=== PATIENT | female | born 1940 | race Caucasian/White ===

== ENCOUNTER → 2017-03-05 | Outpatient (CLI) | payer MEDICARE, BC ==
--- NOTE | 2017-03-05 18:01 | US ---
EXAMINATION TYPE: US thyroid st tissue head/neck DATE OF EXAM: 03/05/2017 COMPARISON: 09/03/2016 CLINICAL HISTORY: Thyroid Nodule E04.1. follow up GLAND SIZE: Right Lobe: 4.6 x 1.9 x 1.8 cm Overall Parenchyma: heterogenous Left Lobe: 4.1 x 1.1 x 1.5 cm Overall Parenchyma: heterogeneous Isthmus Thickness: 0.3 cm NODULES RIGHT: # of nodules measured on right: 1 1. 1.2 X 1.1 x 1.1 cm hypoechoic solid nodule at the upper pole with well-defined margins; . This nodule is wider than tall and shows intranodular vascularity. Prior size: 1.5 x 0.9 x 1.0 cm LEFT: # of nodules measured on left: 0 ISTHMUS: # of nodules measured in the isthmus: 0 Bilateral neck scanned, no evidence of lymphadenopathy. nodule as described IMPRESSION: Stable thyroid heterogeneity. Solid nodule right thyroid lobe is slightly smaller in size in the inte rval.
== END | disposition home or self-care (01) ==
LOC: RADUSWWP 15:29
PROVIDERS: ATTEND Family Medicine
DX: E04.1 Nontoxic single thyroid nodule (principal)
CPT/HCPCS: 76536

== ENCOUNTER → 2017-07-04 | Outpatient (CLI) | payer MEDICARE, BC ==
--- NOTE | 2017-07-04 11:06 | US ---
EXAMINATION TYPE: US abdomen complete DATE OF EXAM: 07/04/2017 COMPARISON: US & CT CLINICAL HISTORY: R10.13 Epigastric pain. EXAM MEASUREMENTS: Liver Length: 12.0 cm Gallbladder Wall: Surgically absent cm CBD: 0.6 cm Spleen: 9.9 cm Right Kidney: 10.3 x 4.3 x 5.4 cm Left Kidney: 10.5 x 4.6 x 5.2 cm Pancreas: not well visualized Liver: difficult to penetrate and generally hyperechoic with poor visualization of the portal triad s and hemidiaphragm. This most commonly relates to at least moderate hepatic steatosis, limiting eval uation for hepatic masses. Gallbladder: Surgically absent CBD: wnl Spleen: wnl Right Kidney: No hydronephrosis or masses seen Left Kidney: No hydronephrosis or masses seen Upper IVC: wnl Abd Aorta: wnl IMPRESSION: 1. Hyperechoic hepatic echotexture most, most commonly corresponding to at least moderate hepatic rina atosis. 2. Surgical absence of the gallbladder.
[2017-07-04 11:26] LABS: Basophils % (A) 0 %; CH 32.3; CHCM 33.1; Eosinophils # (A) 0.1 k/uL (0-0.7); Eosinophils % (A) 1 %; HCT 48.1 % (34.0-46.0); HDW 2.47; HGB 16.2 gm/dL (11.4-16.0); Luc % (Auto) 3; Lymphocytes # (A) 2.7 k/uL (1.0-4.8); Lymphocytes % (A) 38 %; MCHC 33.7 g/dL (31.0-37.0); MCV 98.1 fL (80.0-100.0); Mean Platelet Volume 8.4; Monocytes # (A) 0.4 k/uL (0-1.0); Monocytes % (A) 6 %; Neutrophils # (A) 3.8 k/uL (1.3-7.7); Neutrophils % (A) 53 %; RDW 12.6 % (11.5-15.5); WBC 7.3 k/uL (3.8-10.6); WBC (Perox) 7.36
[2017-07-04 11:50] LABS: ALT 46 U/L (9-52); AST 28 U/L (14-36); Alkaline Phosphatase 70 U/L (38-126); Amylase 49 U/L (30-110); Anion Gap 12 mmol/L; Blood Urea Nitrogen 16 mg/dL (7-17); Calcium 9.1 mg/dL (8.4-10.2); Carbon Dioxide 24 mmol/L (22-30); Chloride 105 mmol/L (98-107); Glucose 110 mg/dL (74-99); Non-African American GFR(MDRD) >60 (>60 ml/min/1.73 sqM); Potassium 4.1 mmol/L (3.5-5.1); Sodium 141 mmol/L (137-145); Total Bilirubin 0.4 mg/dL (0.2-1.3)
== END | disposition home or self-care (01) ==
LOC: RADUSWWP 10:14
PROVIDERS: ATTEND Family Medicine
DX: K76.0 Fatty (change of) liver, not elsewhere classified (principal); R10.13 Epigastric pain; Z90.49 Acquired absence of other specified parts of digestive tract
CPT/HCPCS: 36415; 76700; 80053; 82150; 83690; 85025

== ENCOUNTER → 2018-05-04 | Outpatient (CLI) | payer MEDICARE ==
--- NOTE | 2018-05-04 09:19 | US ---
EXAMINATION TYPE: US thyroid st tissue head/neck DATE OF EXAM: 05/04/2018 COMPARISON: US March 05, 2017 CLINICAL HISTORY: E04.1 Thyroid nodule. Intermittent neck pain x couple months, history of thyroid no dules GLAND SIZE: Right Lobe: 4.8 x 1.9 x 2.0 cm Overall Parenchyma: heterogenous Left Lobe: 4.6 x 1.6 x 1.4 cm Overall Parenchyma: heterogeneous Isthmus Thickness: 0.2 cm NODULES RIGHT: # of nodules measured on right: 1 1. 1.3 X 1.1 x 1.3 cm isoechoic solid nodule at the upper pole with well-defined margins. This nodu le is wider than tall and shows intranodular vascularity. Prior size: 1.2 x 1.1 x 1.1 cm LEFT: # of nodules measured on left: 0 ISTHMUS: # of nodules measured in the isthmus: 0 Bilateral neck scanned, no evidence of lymphadenopathy. Redemonstration of heterogeneous normal-sized thyroid with stable isoechoic solid nodule anteriorly s uperior pole level right thyroid. IMPRESSION: Overall stable findings, no new suspicious nodules identified.
== END | disposition home or self-care (01) ==
LOC: RADUSWWP 08:25
PROVIDERS: ATTEND Family Medicine
DX: E04.1 Nontoxic single thyroid nodule (principal)
CPT/HCPCS: 76536

== ENCOUNTER 2018-09-03 01:46 | Emergency (ER) | payer MEDICARE ==
[2018-09-03 02:55] LABS: Basophils % (A) 1 %; Eosinophils # (A) 0.1 k/uL (0-0.7); Eosinophils % (A) 2 %; HCT 43.1 % (34.0-46.0); HGB 14.4 gm/dL (11.4-16.0); Lymphocytes # (A) 2.9 k/uL (1.0-4.8); Lymphocytes % (A) 40 %; MCH 31.7 pg (25.0-35.0); MCHC 33.5 g/dL (31.0-37.0); MCV 94.7 fL (80.0-100.0); Mean Platelet Volume 8.1; Monocytes # (A) 0.5 k/uL (0-1.0); Monocytes % (A) 6 %; Neutrophils # (A) 3.6 k/uL (1.3-7.7); Neutrophils % (A) 50 %; Platelet Count 228 k/uL (150-450); RBC 4.55 m/uL (3.80-5.40); RDW 12.6 % (11.5-15.5); WBC 7.3 k/uL (3.8-10.6)
[2018-09-03 03:10] LABS: ALT 32 U/L (9-52); AST 25 U/L (14-36); Albumin 4.2 g/dL (3.5-5.0); Alkaline Phosphatase 47 U/L (38-126); Anion Gap 10 mmol/L; Blood Urea Nitrogen 20 mg/dL (7-17); Calcium 9.5 mg/dL (8.4-10.2); Carbon Dioxide 22 mmol/L (22-30); Chloride 108 mmol/L (98-107); Glucose 166 mg/dL (74-99); Potassium 4.3 mmol/L (3.5-5.1); Sodium 140 mmol/L (137-145); Total Bilirubin 0.4 mg/dL (0.2-1.3); Total Protein 6.8 g/dL (6.3-8.2)
--- NOTE | 2018-09-03 03:40 | CT ---
EXAMINATION TYPE: CT soft tissue neck wo con DATE OF EXAM: 09/03/2018 HISTORY: sore throat X 1 week COMPARISON: None CT DLP: 236.6 mGycm. Automated Exposure Control for Dose Reduction was Utilized. TECHNIQUE: Images were obtained without contrast from the top of the frontal sinuses to the aortic ar ch. FINDINGS: There is no evidence of a parotid mass. There is mild mucosal thickening in the ethmoid air cells. Th ere is no evidence of orbital mass. Submandibular salivary glands are symmetric. There is extensive m etal artifact from the dental work. The epiglottis appears normal. Tongue appears normal. There is a 12 mm rounded density on the anterior left side aspect of the hypopharynx. There is slight deformity of the airway. This is between the trachea and the thyroid cartilage. The remainder of the trachea ap pears normal. There is no superior mediastinal adenopathy. I see no cervical adenopathy. The left-sulma ed laryngeal ventricle is not aerated. The cervical spine is intact. The prevertebral soft tissues ar e not enlarged. IMPRESSION: There is a soft tissue density rounded mass that is deforming slightly the hypopharynx on the left anterior wall. This is possibly an enlarged lymph node. I would also consider solid pharyng eal tumor. Follow-up is recommended.
--- NOTE | 2018-09-03 03:46 | XR ---
EXAMINATION TYPE: XR chest 2V DATE OF EXAM: 09/03/2018 COMPARISON: NONE HISTORY: Chest pain TECHNIQUE: Frontal and lateral views of the chest are obtained. FINDINGS: Heart and mediastinum appear normal. Lungs are clear. Diaphragm is normal. Bony thorax austyn ears normal. There are chest leads. IMPRESSION: Normal chest.
--- NOTE | 2018-09-03 03:52 | ED ---
General Adult HPI - General Chief complaint: Upper Respiratory Infection Stated complaint: Chest Pain Time Seen by Provider: 09/03/18 02:15 Source: patient Mode of arrival: ambulatory Limitations: no limitations - History of Present Illness Initial comments: 77-year-old female presents today for multiple complaints. Patient states that for the past week she has experienced congestion, and feeling of phlegm in her throat. She states that the feeling in her throat varies depending on her position. She states when she sleeps on her right side she noticed increased feeling of phlegm. Patient also noted that she recently has been getting over an upper respiratory infection of congestion, cough. Patient states since URI symptoms began resolves she noticed pain to palpation of her anterior chest, this is been going on for about 5 days. Patient denies any recent fever, chills , non-or reproducible chest pain, shortness of breath, dyspnea on exertion, lower extremity edema, jaw pain, upper extremity paresthesias, shoulder pain, epigastric pain, belching, bloating or distention, nausea, vomiting, abdominal pain, back pain, dizziness, difficulty breathing or swallowing, feeling of throat closure. Remainder of ROS negative. Upon arrival patient is well- appearing. Vital signs within acceptable limits. No signs of acute distress. - Related Data Home Medications Medication Instructions Recorded Confirmed ALPRAZolam 0.5 mg PO TID PRN 05/08/15 09/10/16 Cholecalciferol [Vitamin D3] 2,000 unit PO DAILY 05/08/15 09/10/16 Ezetimibe [Zetia] 10 mg PO DAILY 05/08/15 09/10/16 Losartan Potassium 50 mg PO BID 05/08/15 09/10/16 Omeprazole 20 mg PO HS 05/08/15 09/10/16 Ubidecarenone [Co Q-10] 100 mg PO DAILY 05/08/15 09/10/16 metFORMIN HCL 500 mg PO BID 05/08/15 09/10/16 Azithromycin [Zithromax Z-pack] 0 mg PO DIRECTED 09/10/16 09/10/16 Biotin 5 mg PO DAILY 09/10/16 09/10/16 Loperamide [Imodium] 2 mg PO DAILY 09/10/16 09/10/16 Previous Rx's Medication Instructions Recorded predniSONE 50 mg PO DAILY #5 tab 09/10/16 Allergies Allergy/AdvReac Type Severity Reaction Status Date / Time Macrolide Antibiotics AdvReac hair falls Verified 09/03/18 01:52 out per pt Review of Systems ROS Statement: Those systems with pertinent positive or pertinent negative responses have been documented in the HPI. ROS Other: All systems not noted in ROS Statement are negative. Constitutional: Denies: fever, chills ENT: Reports: throat pain (Throat discomfort). Denies: ear pain, dental pain Respiratory: Denies: cough, dyspnea, wheezes, hemoptysis, stridor Cardiovascular: Reports: chest pain (Reproducible chest pain to palpation of the anterior chest wall). Denies: palpitations, dyspnea on exertion Endocrine: Denies: fatigue Gastrointestinal: Denies: abdominal pain, nausea, vomiting, diarrhea, constipation, hematemesis, melena Genitourinary: Denies: urgency, dysuria, frequency, hematuria Musculoskeletal: Denies: back pain Skin: Denies: rash, lesions Neurological: Denies: headache, weakness, numbness, paresthesias, confusion, abnormal gait Past Medical History Past Medical History: Diabetes Mellitus, GERD/Reflux, Hearing Disorder / Deafness, Hyperlipidemia, Hypertension, Osteoarthritis (OA), Thyroid Disorder Additional Past Medical History / Comment(s): DEAF LT EAR. VERTIGO History of Any Multi-Drug Resistant Organisms: None Reported Past Surgical History: Adenoidectomy, Appendectomy, Bladder Surgery, Breast Surgery, Cholecystectomy, Hysterectomy, Orthopedic Surgery, Tonsillectomy, Tubal Ligation Additional Past Surgical History / Comment(s): BLADDER SUSPENSION. COLONOSCOPY. EGD, berast biopsy x2 on left breast - begnin. ORIF LT LEG. SINUS SX, IBS. SKIN LESIONS REMOVED. LT BREAST BX Past Anesthesia/Blood Transfusion Reactions: No Reported Reaction Past Psychological History: Anxiety Smoking Status: Former smoker Past Alcohol Use History: Rare Past Drug Use History: None Reported - Past Family History Father Family Medical History: Cancer Mother Family Medical History: Cancer Daughter(s) Family Medical History: Cancer General Exam - General Exam Comments Initial Comments: General: The patient is awake and alert, in no distress, and does not appear acutely ill. Eye: Pupils are equal, round and reactive to light, extra-ocular movements are intact. No nystagmus. There is normal conjunctiva bilaterally. No signs of icterus. Ears, nose, mouth and throat: There are moist mucous membranes and no oral lesions. Oropharynx is not erythematous, no tonsillar enlargement or exudates. No anterior cervical adenopathy. Uvula midline. No noted stridor. No obvious masses of the thyroid upon palpation. Postnasal drip noted. Neck: The neck is supple, there is no tenderness or JVD. No palpable supraclavicular lymph nodes. Cardiovascular: There is a regular rate and rhythm. No murmur, rub or gallop is appreciated. Respiratory: Lungs are clear to auscultation, respirations are non-labored, breath sounds are equal. No wheezes, stridor, rales, or rhonchi. Gastrointestinal: non-distended, non-tender abdomen without masses or organomegaly noted. There is no rebound or guarding present. Musculoskeletal: Patient is tender to palpation of the anterior chest wall. Normal ROM, no tenderness. Strength 5/5. Sensation intact. Radial pulses equal bilaterally 2+. Neurological: A&O x 3. CN II-XII intact, There are no obvious motor or sensory deficits. Coordination appears grossly intact. Speech is normal. Skin: Skin is warm and dry and no rashes or lesions are noted. Psychiatric: Cooperative, appropriate mood & affect, normal judgment. Limitations: no limitations Course Vital Signs 09/03/18 09/03/18 01:49 03:07 Temperature 98.2 F Pulse Rate 69 77 Respiratory 18 16 Rate Blood Pressure 166/79 155/68 O2 Sat by Pulse 96 96 Oximetry EKG Findings - EKG Comments: EKG Findings:: A 12-lead EKG was performed and shows the following: Rate is 71 bpm, and rhythm is normal sinus. There are normal QRS complexes and normal R- wave progression. ST segments have no elevation or depression, and VA segments appear normal. Medical Decision Making - Medical Decision Making EKG normal sinus rhythm, normal EKG. Chest x-ray negative. Patient had difficulty explaining symptoms, I was concerned of mass given patient's description of throat discomfort with change of position and feeling as though phlegm in throat that she cannot canal. Patient does appear well there does not appear to be overt symptoms of upper respiratory infection at this time. Patient does have tenderness to palpation of the anterior chest wall concerning for costochondritis. Troponin negative. CT of the soft tissue neck was obtained revealing a 12 mm round density on the anterior left side of the hypopharynx. No noted compression of the airway. Patient denies any difficulty breathing or swallowing. T findings appearconsistent with patient stating she is increased throat discomfort when lying on right side. Differential diagnosis included enlarged lymph node and pharyngeal tumor. I discussed these findings with patient. Patient has any recent weight loss. There is no noted adenopathy and CT soft tissues and neck. No palpable lymphadenopathy. Patient is given follow-up with ENT, she is established patient with Dr. Vo. I instructed patient follow up with primary care provider one to 2 days. She is agreeable plan. She states she is ready for discharge. Patient was instructed to take ibuprofen for costochondritis. Return parameters discussed at length with patient, patient verbalized understanding. I discussed case in detail with Dr. Mohr who agreed to impression and plan. Patient discharged in stable condition with follow up as indicated. Patient denied questions upon discharge. - Lab Data Result diagrams: 09/03/18 02:33 09/03/18 02:33 Lab Results 09/03/18 09/03/18 09/03/18 Range/Units 02:33 02:33 02:33 WBC 7.3 (3.8-10.6) k/uL RBC 4.55 (3.80-5.40) m/uL Hgb 14.4 (11.4-16.0) gm/dL Hct 43.1 (34.0-46.0) % MCV 94.7 (80.0-100.0) fL MCH 31.7 (25.0-35.0) pg MCHC 33.5 (31.0-37.0) g/dL RDW 12.6 (11.5-15.5) % Plt Count 228 (150-450) k/uL Neutrophils % 50 % Lymphocytes % 40 % Monocytes % 6 % Eosinophils % 2 % Basophils % 1 % Neutrophils # 3.6 (1.3-7.7) k/uL Lymphocytes # 2.9 (1.0-4.8) k/uL Monocytes # 0.5 (0-1.0) k/uL Eosinophils # 0.1 (0-0.7) k/uL Basophils # 0.0 (0-0.2) k/uL Sodium 140 (137-145) mmol/L Potassium 4.3 (3.5-5.1) mmol/L Chloride 108 H (98-107) mmol/L Carbon Dioxide 22 (22-30) mmol/L Anion Gap 10 mmol/L BUN 20 H (7-17) mg/dL Creatinine 0.68 (0.52-1.04) mg/dL Est GFR (CKD-EPI)AfAm >90 (>60 ml/min/1.73 sqM) Est GFR (CKD-EPI)NonAf 85 (>60 ml/min/1.73 sqM) Glucose 166 H (74-99) mg/dL Calcium 9.5 (8.4-10.2) mg/dL Total Bilirubin 0.4 (0.2-1.3) mg/dL AST 25 (14-36) U/L ALT 32 (9-52) U/L Alkaline Phosphatase 47 (38-126) U/L Troponin I <0.012 (0.000-0.034) ng/mL Total Protein 6.8 (6.3-8.2) g/dL Albumin 4.2 (3.5-5.0) g/dL Influenza Type A RNA (Not Detectd) Influenza Type B (PCR) (Not Detectd) Group A Strep Rapid (Negative) 09/03/18 09/03/18 Range/Units 03:05 03:05 WBC (3.8-10.6) k/uL RBC (3.80-5.40) m/uL Hgb (11.4-16.0) gm/dL Hct (34.0-46.0) % MCV (80.0-100.0) fL MCH (25.0-35.0) pg MCHC (31.0-37.0) g/dL RDW (11.5-15.5) % Plt Count (150-450) k/uL Neutrophils % % Lymphocytes % % Monocytes % % Eosinophils % % Basophils % % Neutrophils # (1.3-7.7) k/uL Lymphocytes # (1.0-4.8) k/uL Monocytes # (0-1.0) k/uL Eosinophils # (0-0.7) k/uL Basophils # (0-0.2) k/uL Sodium (137-145) mmol/L Potassium (3.5-5.1) mmol/L Chloride (98-107) mmol/L Carbon Dioxide (22-30) mmol/L Anion Gap mmol/L BUN (7-17) mg/dL Creatinine (0.52-1.04) mg/dL Est GFR (CKD-EPI)AfAm (>60 ml/min/1.73 sqM) Est GFR (CKD-EPI)NonAf (>60 ml/min/1.73 sqM) Glucose (74-99) mg/dL Calcium (8.4-10.2) mg/dL Total Bilirubin (0.2-1.3) mg/dL AST (14-36) U/L ALT (9-52) U/L Alkaline Phosphatase (38-126) U/L Troponin I (0.000-0.034) ng/mL Total Protein (6.3-8.2) g/dL Albumin (3.5-5.0) g/dL Influenza Type A RNA Not Detected (Not Detectd) Influenza Type B (PCR) Not Detected (Not Detectd) Group A Strep Rapid Negative (Negative) Disposition Clinical Impression: Costochondritis, Mass of pharynx, Throat discomfort Disposition: HOME SELF-CARE Condition: Good Instructions: Costochondritis (ED) Additional Instructions: Please use over the counter medication as discussed. Please follow-up with family doctor in the next 2 days for costochondritis. Please follow-up with Dr. Grimes (ENT) for pharyngeal mass noted on CT. Please return to emergency room if the symptoms increase or worsen or for any other concerns. Is patient prescribed a controlled substance at d/c from ED?: No Referrals: Ivan Frederick DO [Primary Care Provider] - 1-2 days rBoderick Grimes MD [STAFF PHYSICIAN] - 1-2 days Time of Disposition: 03:52
[2018-09-03 04:08] VITALS: BP 155/84; PULSE 70; RESP 18; TEMP 98.1
== END 2018-09-03 04:12 | disposition home or self-care (01) ==
LOC: EC 01:46
DX: M94.0 Chondrocostal junction syndrome [Tietze] (principal); J39.2 Other diseases of pharynx; E11.9 Type 2 diabetes mellitus without complications; K21.9 Gastro-esophageal reflux disease without esophagitis; E78.5 Hyperlipidemia, unspecified; I10 Essential (primary) hypertension; Z90.89 Acquired absence of other organs; Z87.891 Personal history of nicotine dependence; Z79.84 Long term (current) use of oral hypoglycemic drugs; Z79.899 Other long term (current) drug therapy; Z88.1 Allergy status to other antibiotic agents
CPT/HCPCS: 36415; 70490; 71046; 80053; 84484; 85025; 87081; 87430; 87502; 93005; 99285

== ENCOUNTER → 2018-11-11 | Outpatient (CLI) | payer MEDICARE ==
--- NOTE | 2018-11-11 09:51 | US ---
EXAMINATION TYPE: US thyroid st tissue head/neck DATE OF EXAM: 11/11/2018 COMPARISON: NONE CLINICAL HISTORY: E04.1 SINGLE THYROID NODULE. GLAND SIZE: Right Lobe: 4.9 x 2.3 x 1.9 cm Overall Parenchyma: homogenous Left Lobe: 4.3 x 2.1 x 1.5 cm Overall Parenchyma: homogeneous Isthmus Thickness: 0.4 cm NODULES RIGHT: # of nodules measured on right: 1 1. 1.3 X 1.0 x 1.1 cm hypoechoic solid nodule at the upper pole with well-defined margins; . This nodule is wider than tall and shows no intranodular vascularity. Prior size: 1.3 x 1.1 x 1.3 cm LEFT: # of nodules measured on left: 1 1. 0.6 X 0.3 x 0.6 cm hypoechoic solid nodule at the upper pole with well-defined margins; . This nodule is taller than wide and shows no intranodular vascularity. Prior size: not previously imaged ISTHMUS: # of nodules measured in the isthmus: 0 Bilateral neck scanned, no evidence of lymphadenopathy. IMPRESSION: Nonspecific nodularity is essentially stable. New subcentimeter nodule left thyroid lobe.
== END | disposition home or self-care (01) ==
LOC: RADUSWWP 09:05
PROVIDERS: ATTEND Family Medicine
DX: E04.1 Nontoxic single thyroid nodule (principal)
CPT/HCPCS: 76536

== ENCOUNTER 2019-03-28 03:30 | Emergency (ER) | payer MEDICARE ==
[2019-03-28 03:40] VITALS: BP 199/89; PULSE 96; RESP 19; TEMP 98.3
[2019-03-28] MEDS ORDERED: KETOROLAC 30 MG/ML 1 ML VIAL IM STA (04:10)
--- NOTE | 2019-03-28 04:13 | ED ---
General Adult HPI - General Chief complaint: Extremity Injury, Lower Stated complaint: Flank Pain Time Seen by Provider: 03/28/19 03:46 Source: patient Mode of arrival: ambulatory Limitations: no limitations - History of Present Illness Initial comments: Dictation was produced using [employer] dictation software. please excuse any grammatical, word or spelling errors. Chief Complaint: 70-year-old female past nuchal history of right-sided sciatica presents with right-sided hip pain. History of Present Illness: Now she states that she began having symptoms earlier today. Patient has a history of sciatica. She reports that the pain is originating from her right gluteal area. States pain radiates to her back to her right lower extremity. Patient reports history of symptoms like this in the past. Patient states that she is currently remodeling her kitchen and has being doing more exertional activity than usual. Patient reports that pain is usually alleviated with analgesic spray. She states that today it didn't really improve her symptoms like it normally does. She reports having had an MRI several years ago. She is currently having this pain management by her primary care physician. Eyes any fever, chills or night sweats. Denies any saddle anesthesia or incontinence to bowel or bladder. Patient states she is having difficulty sleeping and controlling her symptoms. Her said her symptoms are worse with movement especially with bending at the hip. The ROS documented in this emergency department record has been reviewed and confirmed by me. Those systems with pertinent positive or negative responses have been documented in the HPI. All other systems are other negative and/or noncontributory. PHYSICAL EXAM: General Impression: Alert and oriented x3, not in acute distress HEENT: Normocephalic atraumatic, extra-ocular movements intact, pupils equal and reactive to light bilaterally, mucous membranes moist. Cardiovascular: Heart regular rate and rhythm, S1&S2 audible, no murmurs, rubs or gallops Chest: Lungs clear to auscultation bilaterally, no rhonchi, no wheeze, no rales Abdomen: Bowel sounds present, abdomen soft, non-tender, non-distended, no organomegaly Musculoskeletal: Pulses present and equal in all extremities, no peripheral edema, tenderness palpation over the right piriformis Motor: no focal deficits noted Neurological: CN II-XII grossly intact, no focal motor or sensory deficits noted Skin: Intact with no visualized rashes Psych: Normal affect and mood ED course: 78 yo female with acute on chronic exacerbation of sciatica. Signs upon arrival are within acceptable limits. She given IM analgesia. Patient did not want to wait to be reevaluated to see if her pain improved. She requested to be discharged at this time. She is well-appearing at bedside. She is ambulatory at bedside without any complications. Patient is well-appearing at bedside.. Patient be discharged. She is told to follow-up with primary care physician. - Related Data Home Medications Medication Instructions Recorded Confirmed ALPRAZolam 0.5 mg PO TID PRN 05/08/15 03/28/19 Cholecalciferol [Vitamin D3] 2,000 unit PO DAILY 05/08/15 03/28/19 Ezetimibe [Zetia] 10 mg PO DAILY 05/08/15 03/28/19 Losartan Potassium 50 mg PO BID 05/08/15 03/28/19 Omeprazole 20 mg PO HS 05/08/15 03/28/19 Ubidecarenone [Co Q-10] 100 mg PO DAILY 05/08/15 03/28/19 metFORMIN HCL 500 mg PO BID 05/08/15 03/28/19 Biotin 5 mg PO DAILY 09/10/16 03/28/19 Loperamide [Imodium] 2 mg PO DAILY 09/10/16 03/28/19 Previous Rx's Medication Instructions Recorded predniSONE 50 mg PO DAILY #5 tab 09/10/16 Allergies Allergy/AdvReac Type Severity Reaction Status Date / Time Macrolide Antibiotics AdvReac hair falls Verified 09/03/18 01:52 out per pt Review of Systems ROS Statement: Those systems with pertinent positive or pertinent negative responses have been documented in the HPI. ROS Other: All systems not noted in ROS Statement are negative. Past Medical History Past Medical History: Diabetes Mellitus, GERD/Reflux, Hearing Disorder / Deafness, Hyperlipidemia, Hypertension, Osteoarthritis (OA), Thyroid Disorder Additional Past Medical History / Comment(s): DEAF LT EAR. VERTIGO History of Any Multi-Drug Resistant Organisms: None Reported Past Surgical History: Adenoidectomy, Appendectomy, Bladder Surgery, Breast Surgery, Cholecystectomy, Hysterectomy, Orthopedic Surgery, Tonsillectomy, Tubal Ligation Additional Past Surgical History / Comment(s): BLADDER SUSPENSION. COLONOSCOPY. EGD, berast biopsy x2 on left breast - begnin. ORIF LT LEG. SINUS SX, IBS. SKIN LESIONS REMOVED. LT BREAST BX. Polyp removed from throat Past Anesthesia/Blood Transfusion Reactions: No Reported Reaction Past Psychological History: Anxiety Smoking Status: Former smoker Past Alcohol Use History: Rare Past Drug Use History: None Reported - Past Family History Father Family Medical History: Cancer Mother Family Medical History: Cancer Daughter(s) Family Medical History: Cancer General Exam Limitations: no limitations Course Vital Signs 03/28/19 03:34 Temperature 98.3 F Pulse Rate 96 Respiratory 19 Rate Blood Pressure 199/89 O2 Sat by Pulse 95 Oximetry Disposition Clinical Impression: Sciatica Disposition: HOME SELF-CARE Condition: Good Instructions (If sedation given, give patient instructions): Sciatica (ED) Is patient prescribed a controlled substance at d/c from ED?: No Referrals: Ivan Frederick DO [Primary Care Provider] - 1-2 days Time of Disposition: 04:35
== END 2019-03-28 04:50 | disposition home or self-care (01) ==
LOC: EC 03:30
DX: M54.31 Sciatica, right side (principal); I10 Essential (primary) hypertension; E11.9 Type 2 diabetes mellitus without complications; K21.9 Gastro-esophageal reflux disease without esophagitis; E78.5 Hyperlipidemia, unspecified; H91.92 Unspecified hearing loss, left ear; F41.9 Anxiety disorder, unspecified; R10.9 Unspecified abdominal pain; Z79.84 Long term (current) use of oral hypoglycemic drugs; Z79.899 Other long term (current) drug therapy; Z88.1 Allergy status to other antibiotic agents; Z87.891 Personal history of nicotine dependence; Z90.49 Acquired absence of other specified parts of digestive tract; Z98.890 Other specified postprocedural states; Z96.698 Presence of other orthopedic joint implants
CPT/HCPCS: 99283; 96372; J1885

== ENCOUNTER → 2019-05-11 | Outpatient (CLI) | payer MEDICARE ==
--- NOTE | 2019-05-11 14:49 | US ---
EXAMINATION TYPE: US thyroid st tissue head/neck DATE OF EXAM: 05/11/2019 COMPARISON: US dating back to 09/03/2016 CLINICAL HISTORY: E04.1 nontoxic single thyroid nodule. GLAND SIZE: Right Lobe: 4.0 x 1.9 x 1.9 cm Overall Parenchyma: homogenous Left Lobe: 4.5 x 1.9 x 1.5 cm Overall Parenchyma: homogeneous Isthmus Thickness: 0.2 cm NODULES RIGHT: # of nodules measured on right: 1 1. 1.2 X 0.9 x 1.1 cm isoechoic solid nodule at the upper pole with well-defined margins. This nod ule is wider than tall and shows . Prior size: 1.3 x 0.3 x 0.6 cm on the most recent exam and this measured 1.5 x 0.9 x 1.0 cm on th e exam of 09/03/2016. LEFT: # of nodules measured on left: 1 1. 0.7 X 0.3 x 0.6 cm hypoechoic solid nodule at the upper pole with well-defined margins . This n odule is wider than tall and shows intranodular vascularity. Prior size: 0.6 x 0.3 x 0.6 cm ISTHMUS: # of nodules measured in the isthmus: 0 Bilateral neck scanned, no evidence of lymphadenopathy. IMPRESSION: Similar size of the bilateral thyroid nodules. Continued surveillance is recommended.
== END | disposition home or self-care (01) ==
LOC: RADUSWWP 14:04
PROVIDERS: ATTEND Family Medicine
DX: E04.2 Nontoxic multinodular goiter (principal)
CPT/HCPCS: 76536

== ENCOUNTER → 2020-03-28 | Outpatient (CLI) | payer MEDICARE ==
--- NOTE | 2020-03-29 07:15 | US ---
EXAMINATION TYPE: US thyroid st tissue head/neck DATE OF EXAM: 03/28/2020 COMPARISON: NONE CLINICAL HISTORY: E04.1 Thyroid nodule. GLAND SIZE: Right Lobe: 5.6 x 2.3 x 1.6 cm Overall Parenchyma: heterogenous Left Lobe: 4.8 x 1.9 x 1.2 cm Overall Parenchyma: heterogeneous Isthmus Thickness: 0.3 cm NODULES RIGHT: # of nodules measured on right: 1 1. 1.2 X 0.9 x 1.4 cm isoechoic solid nodule at the upper pole with well-defined margins. This nod ule is wider than tall and shows intranodular vascularity. Prior size: 1.2 x 0.9 x 1.1 cm LEFT: # of nodules measured on left: 1 1. 0.6 X 0.4 x 0.6 cm isoechoic solid nodule at the mid pole with well-defined margins. This nodul e is wider than tall and shows no intranodular vascularity. Prior size: 0.7 x 0.3 x 0.6 cm ISTHMUS: # of nodules measured in the isthmus: 0 Bilateral neck scanned, no evidence of lymphadenopathy. IMPRESSION: Stable nonspecific thyroid nodularity.
== END | disposition home or self-care (01) ==
LOC: RADUSWWP 16:04
PROVIDERS: ATTEND Family Medicine
DX: E04.1 Nontoxic single thyroid nodule (principal)
CPT/HCPCS: 76536

== ENCOUNTER 2021-01-19 10:42 | Inpatient (IN) | payer MEDICARE ==
[2021-01-19] MEDS ORDERED: ACETAMINOPHEN TAB 325 MG TAB PO PRN (10:49)
[2021-01-19] MEDS ORDERED: ALBUTEROL HFA INHALER INHALATION PRN (10:49)
[2021-01-19] MEDS ORDERED: ALBUTEROL HFA INHALER INHALATION STA (10:49)
--- NOTE | 2021-01-19 10:51 | ED ---
General Adult HPI - General Stated complaint: Altered Mental Status Time Seen by Provider: 01/19/21 10:44 Source: patient, EMS, RN notes reviewed Mode of arrival: EMS Limitations: no limitations - History of Present Illness Initial comments: Patient is a pleasant 80-year-old female presenting to the emergency department with difficulty in breathing. Patient was diagnosed positive with coronavirus on January 10. Patient did receive monoclonal antibodies a couple of days ago. P atient was less responsive today. Patient was not keeping her oxygen on. Patient has been using oxygen as coronavirus infection recently. Patient was confused and cyanotic per EMS. Sat was in the 70s or 80s. Patient dramatically improved with 100% oxygen. - Related Data Home Medications Medication Instructions Recorded Confirmed ALPRAZolam 0.5 mg PO TID PRN 05/08/15 03/28/19 Cholecalciferol [Vitamin D3] 2,000 unit PO DAILY 05/08/15 03/28/19 Ezetimibe [Zetia] 10 mg PO DAILY 05/08/15 03/28/19 Losartan Potassium 50 mg PO BID 05/08/15 03/28/19 Omeprazole 20 mg PO HS 05/08/15 03/28/19 Ubidecarenone [Co Q-10] 100 mg PO DAILY 05/08/15 03/28/19 metFORMIN HCL 500 mg PO BID 05/08/15 03/28/19 Biotin 5 mg PO DAILY 09/10/16 03/28/19 Loperamide [Imodium] 2 mg PO DAILY 09/10/16 03/28/19 Previous Rx's Medication Instructions Recorded predniSONE 50 mg PO DAILY #5 tab 09/10/16 Allergies Allergy/AdvReac Type Severity Reaction Status Date / Time Macrolide Antibiotics AdvReac hair falls Verified 01/19/21 10:57 out per pt Review of Systems ROS Statement: Those systems with pertinent positive or pertinent negative responses have been documented in the HPI. ROS Other: All systems not noted in ROS Statement are negative. Constitutional: Reports: chills Eyes: Denies: eye pain ENT: Denies: ear pain Respiratory: Reports: cough, dyspnea Cardiovascular: Denies: chest pain Endocrine: Reports: fatigue Gastrointestinal: Denies: abdominal pain Genitourinary: Denies: dysuria Musculoskeletal: Denies: back pain Skin: Denies: rash Neurological: Reports: as per HPI, confusion. Denies: headache Past Medical History Past Medical History: Diabetes Mellitus, GERD/Reflux, Hearing Disorder / Deaf ness, Hyperlipidemia, Hypertension, Osteoarthritis (OA), Thyroid Disorder Additional Past Medical History / Comment(s): DEAF LT EAR. VERTIGO History of Any Multi-Drug Resistant Organisms: None Reported Past Surgical History: Adenoidectomy, Appendectomy, Bladder Surgery, Breast Surgery, Cholecystectomy, Hysterectomy, Orthopedic Surgery, Tonsillectomy, Tubal Ligation Additional Past Surgical History / Comment(s): BLADDER SUSPENSION. COLONOSCOPY. EGD, berast biopsy x2 on left breast - begnin. ORIF LT LEG. SINUS SX, IBS. SKIN LESIONS REMOVED. LT BREAST BX. Polyp removed from throat Past Anesthesia/Blood Transfusion Reactions: No Reported Reaction Past Psychological History: Anxiety Past Alcohol Use History: Rare Past Drug Use History: None Reported - Past Family History Father Family Medical History: Cancer Mother Family Medical History: Cancer Daughter(s) Family Medical History: Cancer General Exam Limitations: altered mental status General appearance: alert Head exam: Present: normocephalic Eye exam: Present: normal appearance, PERRL Neck exam: Present: normal inspection Respiratory exam: Present: respiratory distress (Mild respiratory distress), rhonchi Cardiovascular Exam: Present: tachycardia GI/Abdominal exam: Present: soft. Absent: tenderness Extremities exam: Present: normal inspection Neurological exam: Present: alert Expanded Patient oriented to: Present: person, place Speech: Present: fluid speech Psychiatric exam: Present: normal affect, normal mood Skin exam: Present: normal color Course Vital Signs 01/19/21 01/19/21 01/19/21 10:45 11:19 11:35 Temperature 98.9 F Pulse Rate 99 102 H 100 Respiratory 24 29 H 38 H Rate Blood Pressure 156/105 182/91 194/103 O2 Sat by Pulse 86 L 94 L 96 Oximetry EKG Findings - EKG Comments: EKG Findings:: Sinus rhythm with a rate of 100. [place] 144. QRS 80. QT 360. QTC 464. Normal axis. Significant artifact is present. Normal QRS. No acute ST change. Procedures - ABG Interpretation Ph: 7.538 PCO2: 30.2 PO2: 136 Bicarbonate: 25 Interpretation: respiratory alkalosis Additional Comments: On 100% nonrebreather Medical Decision Making - Medical Decision Making Patient reevaluated several times. Patient is somewhat improved with BiPAP. Case was discussed in detail with Dr. Aldrich, who will admit covering for Dr. Frederick. Pulmonary will be placed on consult. - Lab Data Result diagrams: 01/19/21 11:16 01/19/21 11:16 Lab Results 01/19/21 01/19/21 Range/Units 11:16 11:16 WBC 8.5 (3.8-10.6) k/uL RBC 5.23 (3.80-5.40) m/uL Hgb 16.6 H (11.4-16.0) gm/dL Hct 48.9 H (34.0-46.0) % MCV 93.6 (80.0-100.0) fL MCH 31.7 (25.0-35.0) pg MCHC 33.8 (31.0-37.0) g/dL RDW 12.8 (11.5-15.5) % Plt Count 229 (150-450) k/uL MPV 10.7 Neutrophils % 76 % Lymphocytes % 10 % Monocytes % 10 % Eosinophils % 0 % Basophils % 1 % Neutrophils # 6.5 (1.3-7.7) k/uL Lymphocytes # 0.9 L (1.0-4.8) k/uL Monocytes # 0.8 (0-1.0) k/uL Eosinophils # 0.0 (0-0.7) k/uL Basophils # 0.1 (0-0.2) k/uL Sodium 137 (137-145) mmol/L Potassium 4.2 (3.5-5.1) mmol/L Chloride 105 (98-107) mmol/L Carbon Dioxide 24 (22-30) mmol/L Anion Gap 8 mmol/L BUN 33 H (7-17) mg/dL Creatinine 0.61 (0.52-1.04) mg/dL Est GFR (CKD-EPI)AfAm >90 (>60 ml/min/1.73 sqM) Est GFR (CKD-EPI)NonAf 86 (>60 ml/min/1.73 sqM) Glucose 316 H (74-99) mg/dL Calcium 9.3 (8.4-10.2) mg/dL Magnesium 2.0 (1.6-2.3) mg/dL Total Bilirubin 1.0 (0.2-1.3) mg/dL AST 92 H (14-36) U/L ALT 140 H (4-34) U/L Alkaline Phosphatase 103 (38-126) U/L Lactate Dehydrogenase 1897 H (313-618) U/L Total Protein 6.2 L (6.3-8.2) g/dL Albumin 3.6 (3.5-5.0) g/dL - Radiology Data Radiology results: image reviewed (Chest x-ray shows interstitial infiltrates) Critical Care Time Critical Care Time: Yes Total Critical Care Time: 31 Disposition Clinical Impression: COVID-19, Acute respiratory failure Disposition: ADMITTED IP TO THIS [facility] Condition: Serious Is patient prescribed a controlled substance at d/c from ED?: No Referrals: Ivan Frederick DO [Primary Care Provider] - 1-2 days Decision Time: 12:41
[2021-01-19] MEDS ORDERED: LORazepam 2 MG/ML INJ IV STA (11:50)
--- NOTE | 2021-01-19 11:56 | XR ---
EXAMINATION TYPE: XR chest 1V portable DATE OF EXAM: 01/19/2021 Comparison: 09/03/2018 Clinical History: 80-year-old female Suspected COVID-19 pneumonia Findings: Heart normal size. Aorta within normal limits. Hyperinflation. Interstitial opacities in the mid and lower lungs. No pleural effusion. Impression: Interstitial COVID infiltrates in the mid and lower lungs.
[2021-01-19 12:09] LABS: Basophils # (A) 0.1 k/uL (0-0.2); Basophils % (A) 1 %; Eosinophils % (A) 0 %; HCT 48.9 % (34.0-46.0); HGB 16.6 gm/dL (11.4-16.0); Lymphocytes # (A) 0.9 k/uL (1.0-4.8); Lymphocytes % (A) 10 %; MCH 31.7 pg (25.0-35.0); MCHC 33.8 g/dL (31.0-37.0); MCV 93.6 fL (80.0-100.0); Mean Platelet Volume 10.7; Monocytes # (A) 0.8 k/uL (0-1.0); Monocytes % (A) 10 %; Neutrophils # (A) 6.5 k/uL (1.3-7.7); Neutrophils % (A) 76 %; Platelet Count 229 k/uL (150-450); RBC 5.23 m/uL (3.80-5.40); RDW 12.8 % (11.5-15.5); WBC 8.5 k/uL (3.8-10.6)
[2021-01-19 12:27] LABS: ALT 140 U/L (4-34); AST 92 U/L (14-36); African American GFR (CKD) >90 (>60 ml/min/1.73 sqM); Albumin 3.6 g/dL (3.5-5.0); Alkaline Phosphatase 103 U/L (38-126); Anion Gap 8 mmol/L; Blood Urea Nitrogen 33 mg/dL (7-17); Calcium 9.3 mg/dL (8.4-10.2); Carbon Dioxide 24 mmol/L (22-30); Chloride 105 mmol/L (98-107); Glucose 316 mg/dL (74-99); LDH 1897 U/L (313-618); Non-African American GFR(CKD) 86 (>60 ml/min/1.73 sqM); Potassium 4.2 mmol/L (3.5-5.1); Sodium 137 mmol/L (137-145); Total Protein 6.2 g/dL (6.3-8.2)
[2021-01-19] MEDS ORDERED: NALOXONE 0.4 MG/ML 1 ML VIAL IV PRN (12:41)
[2021-01-19 12:44] LABS: Partial Thromboplastin Time 19.6 sec (22.0-30.0)
[2021-01-19] MEDS ORDERED: CHOLECALCIFEROL 25 MCG (1000 IU) TABLET PO SCH (12:45)
[2021-01-19] MEDS ORDERED: OLANZapine 10 MG VIAL IM STA (13:29)
[2021-01-19] MEDS: LORazepam 2 MG/ML INJ IV PRN ×2 (13:39→20:12)
[2021-01-19] MEDS: DEXAMETHASONE SOD PHOSPHATE 10 MG/ML 1 ML VIAL IV SCH (13:44)
[2021-01-19 13:56] LABS: C Reactive Protein 0.7 mg/dL (<1.0)
[2021-01-19] MEDS: ZINC SULFATE 220 MG CAP PO SCH (14:46)
[2021-01-19] MEDS: ENOXAPARIN 40 MG/0.4 ML SYRINGE SQ SCH (14:46)
[2021-01-19] MEDS: SODIUM CHLORIDE 0.9% 1,000 ML IV SCH (14:48)
[2021-01-19] MEDS: ALBUTEROL HFA INHALER INHALATION SCH ×2 (15:18→19:20)
[2021-01-19 17:59] LABS: Glucose,Whole Blood 356 mg/dL (75-99)
[2021-01-19 20:19] LABS: Glucose,Whole Blood 355 mg/dL (75-99)
[2021-01-19] MEDS ORDERED: INSULIN ASPART (NovoLOG) 100 UNIT/ML VIAL SQ SCH (21:00)
[2021-01-19 21:05] LABS: Ferritin 1759.8 ng/mL (10.0-291.0)
[2021-01-19] MEDS: ASCORBIC ACID 500 MG TAB PO SCH (21:08)
[2021-01-19] MEDS ORDERED: NON FORMULARY DRUG (Omeprazole [Omeprazole] 20 MG Capsule.Dr) PO SCH (21:15)
[2021-01-20 00:06] LABS: Glucose,Whole Blood 311 mg/dL (75-99)
[2021-01-20] MEDS: LORazepam 2 MG/ML INJ IV PRN ×2 (01:45→08:26)
[2021-01-20] MEDS: INSULIN ASPART (NovoLOG) 100 UNIT/ML VIAL SQ SCH ×2 (02:23→06:26)
[2021-01-20] MEDS: SODIUM CHLORIDE 0.9% 1,000 ML IV SCH (02:24)
[2021-01-20] MEDS: ALBUTEROL HFA INHALER INHALATION SCH ×2 (03:23→09:44)
[2021-01-20 05:25] VITALS: TEMP 98.4
[2021-01-20 06:04] LABS: Glucose,Whole Blood 248 mg/dL (75-99)
[2021-01-20] MEDS ORDERED: LOSARTAN 50 MG TAB PO SCH (09:00)
[2021-01-20] MEDS ORDERED: CHOLECALCIFEROL 25 MCG (1000 IU) TABLET PO SCH (09:00)
[2021-01-20] MEDS ORDERED: PANTOPRAZOLE 40 MG/10 ML VIAL IV SCH (09:00)
[2021-01-20] MEDS ORDERED: EZETIMIBE 10 MG TAB PO SCH (09:00)
[2021-01-20 09:27] VITALS: BP 185/92
[2021-01-20] MEDS: ASCORBIC ACID 500 MG TAB PO SCH (10:13)
[2021-01-20] MEDS: ZINC SULFATE 220 MG CAP PO SCH (10:14)
[2021-01-20] MEDS ORDERED: ACETAMINOPHEN SUPPOSITORY 650 MG SUPP RECTAL PRN (10:43)
[2021-01-20] MEDS ORDERED: LORazepam 2 MG/ML INJ IV PRN (10:43)
[2021-01-20] MEDS ORDERED: MORPHINE SULFATE 2 MG/ML SYRINGE IV PRN (10:43)
--- NOTE | 2021-01-20 10:52 | P.CNPUL ---
History of Present Illness Consult date: 01/20/21 Reason for consult: hypoxemia, pneumonia History of present illness: 80-year-old female patient presented with shortness of breath. The patient was diagnosed having COVID-19 infection on 01/10/2021 and the patient has received monoclonal antibodies. The patient's condition gradually got worse and she came into the emergency department with altered mentation diminished level of consciousness. She was on to be quite hypoxic. EMS brought her to the hospital found the patient was quite confused and cyanotic her pulse ox was in the 70s. She was placed on 100% nonrebreather facemask and after arrival to the emergency the patient was placed on a BiPAP and current settings are 10/5 cm of water with an FiO2 of 90%. The initial blood gases while on 100% nonrebreather facemask showed a pH of 7.53 with a pCO2 of 50 and pO2 of 136. White cell count is at 8.5 with hemoglobin of 16.6 and the patient has lymphopenia. Coagulation profile is within normal limits. The LDH level was 1897 and the CRP is at 0.7. The pro calcitonin level level is at 0.12. The chest x-ray showed diffuse bilateral pulmonary infiltrates consistent with COVID-19 related pneumonia. We came to further final the patient's a week ago for COVID-19 related complications. For now, the patient moans, she is is not opening her eyes patient does not follow any verbal commands. She does not communicate. She is on a BiPAP and she is also having labored breathing. Review of Systems ROS unobtainable: due to mental status Past Medical History Past Medical History: Diabetes Mellitus, GERD/Reflux, Hearing Disorder / Deafness, Hyperlipidemia, Hypertension, Osteoarthritis (OA), Thyroid Disorder Additional Past Medical History / Comment(s): Pt tested covid + 01/10/21 at [facility]. Other hx: NIDDM type II, neuropathy bilateral feet, low back pain and L sided sciatica/hip pain, hypothyroid, IBS, benign colon polyps, benign throat polyp, vertigo History of Any Multi-Drug Resistant Organisms: None Reported Past Surgical History: Adenoidectomy, Appendectomy, Bladder Surgery, Breast Surgery, Cholecystectomy, Hysterectomy, Orthopedic Surgery, Tonsillectomy, Tubal Ligation Additional Past Surgical History / Comment(s): EGDs/throat polypectomy, colonoscopies/benign polypectomies, ORIF L leg, bladder suspension, L breast bx x2, sinus surgery, skin lesion removals. Past Anesthesia/Blood Transfusion Reactions: No Reported Reaction Smoking Status: Former smoker - Past Family History Father Family Medical History: Cancer Mother Family Medical History: Cancer Daughter(s) Family Medical History: Cancer Medications and Allergies Home Medications Medication Instructions Recorded Confirmed Type ALPRAZolam 0.25 - 0.5 mg PO TID PRN 05/08/15 01/19/21 History Cholecalciferol [Vitamin D3] 2,000 unit PO DAILY 05/08/15 01/19/21 History Ezetimibe [Zetia] 10 mg PO DAILY 05/08/15 01/19/21 History Omeprazole 20 mg PO HS 05/08/15 01/19/21 History Ubidecarenone [Co Q-10] 100 mg PO DAILY 05/08/15 01/19/21 History Albuterol Inhaler [Ventolin Hfa 2 puff INHALATION RT-QID PRN 01/19/21 01/19/21 History Inhaler] Ascorbic Acid [Vitamin C] 1,000 mg PO DAILY 01/19/21 01/19/21 History Dexamethasone [Decadron] 4 mg PO BID 01/19/21 01/19/21 History Enoxaparin [Lovenox] 40 mg SQ DAILY 01/19/21 01/19/21 History Ibuprofen [Motrin] 600 mg PO Q12H PRN 01/19/21 01/19/21 History Losartan Potassium 50 mg PO DAILY 01/19/21 01/19/21 History Losartan Potassium 50 mg PO DAILY PRN 01/19/21 01/19/21 History Zinc Sulfate [Orazinc] 220 mg PO DAILY 01/19/21 01/19/21 History sitaGLIPtin [Januvia] 50 mg PO DAILY 01/19/21 01/19/21 History Allergies Allergy/AdvReac Type Severity Reaction Status Date / Time Macrolide Antibiotics AdvReac hair falls Verified 01/19/21 12:58 out per pt Physical Exam Vitals: Vital Signs Temp Pulse Pulse Resp BP BP Pulse Ox 01/20/21 08:00 103 H 60 H 185/92 90 L 01/20/21 04:00 98.4 F 99 30 H 167/89 94 L 01/20/21 02:00 108 H 32 H 01/20/21 00:00 97.9 F 108 H 32 H 189/93 95 01/19/21 23:21 99 01/19/21 20:00 99.0 F 98 33 H 141/96 96 01/19/21 18:15 98.5 F 112 H 32 H 184/108 93 L 01/19/21 17:23 98.7 F 115 H 34 H 199/103 96 01/19/21 16:47 120 H 40 H 216/119 96 01/19/21 15:26 98.8 F 109 H 22 174/87 95 01/19/21 14:45 107 H 26 H 160/85 93 L 01/19/21 13:19 122 H 40 H 208/115 99 01/19/21 11:35 100 38 H 194/103 96 01/19/21 11:19 102 H 29 H 182/91 94 L Intake and Output 01/19/21 01/20/21 01/20/21 22:59 06:59 14:59 Intake Total 0 675 0 Output Total 0 Balance 0 675 0 Intake: Intake, IV Titration 675 Amount Sodium Chloride 0.9% 1, 675 000 ml @ 75 mls/hr IV . [id number] [facility] Rx#:[id number] Oral 0 0 Output: Urine 0 Other: # Voids 2 1 # Bowel Movements 1 1 Weight 61.689 kg 67 kg Unresponsive, lethargic, labored breathing, currently on a BiPAP with a full facemask, does not communicate, does not follow any commands, Head exam was generally normal. There was no scleral icterus or corneal arcus. Mucous membranes were moist. Neck was supple and without jugular venous distension, thyromegaly, or carotid bruits. Carotids were easily palpable bilaterally. There was no adenopathy. Lungs sounds reveal factor lung bases bilaterally Cardiac exam revealed the PMI to be normally situated and sized. The rhythm was regular and no extrasystoles were noted during several minutes of auscultation. The first and second heart sounds were normal and physiologic splitting of the second heart sound was noted. There were no murmurs, rubs, clicks, or gallops. Abdominal exam revealed normal bowel sounds. The abdomen was soft, non-tender, and without masses, organomegaly, or appreciable enlargement of the abdominal aorta. Examination of the extremities revealed easily palpable radial, femoral and pedal pulses. There was no cyanosis, clubbing or edema. Neurologically, equal and symmetrical pupils. Motor function cannot be assessed. Does not communicate. Results - Laboratory Findings CBC and BMP: 01/19/21 11:16 01/19/21 11:16 ABG WBC 8.5 k/uL (3.8-10.6) 01/19/21 11:16 RBC 5.23 m/uL (3.80-5.40) 01/19/21 11:16 Hgb 16.6 gm/dL (11.4-16.0) H 01/19/21 11:16 Hct 48.9 % (34.0-46.0) H 01/19/21 11:16 MCV 93.6 fL (80.0-100.0) 01/19/21 11:16 MCH 31.7 pg (25.0-35.0) 01/19/21 11:16 MCHC 33.8 g/dL (31.0-37.0) 01/19/21 11:16 RDW 12.8 % (11.5-15.5) 01/19/21 11:16 Plt Count 229 k/uL (150-450) 01/19/21 11:16 MPV 10.7 01/19/21 11:16 Neutrophils % 76 % 01/19/21 11:16 Lymphocytes % 10 % 01/19/21 11:16 Monocytes % 10 % 01/19/21 11:16 Eosinophils % 0 % 01/19/21 11:16 Basophils % 1 % 01/19/21 11:16 Neutrophils # 6.5 k/uL (1.3-7.7) 01/19/21 11:16 Lymphocytes # 0.9 k/uL (1.0-4.8) L 01/19/21 11:16 Monocytes # 0.8 k/uL (0-1.0) 01/19/21 11:16 Eosinophils # 0.0 k/uL (0-0.7) 01/19/21 11:16 Basophils # 0.1 k/uL (0-0.2) 01/19/21 11:16 PT 11.0 sec (9.0-12.0) 01/19/21 11:16 INR 1.0 (<1.2) 01/19/21 11:16 APTT 19.6 sec (22.0-30.0) L 01/19/21 11:16 Sodium 137 mmol/L (137-145) 01/19/21 11:16 Potassium 4.2 mmol/L (3.5-5.1) 01/19/21 11:16 Chloride 105 mmol/L (98-107) 01/19/21 11:16 Carbon Dioxide 24 mmol/L (22-30) 01/19/21 11:16 Anion Gap 8 mmol/L 01/19/21 11:16 BUN 33 mg/dL (7-17) H 01/19/21 11:16 Creatinine 0.61 mg/dL (0.52-1.04) 01/19/21 11:16 Est GFR (CKD-EPI)AfAm >90 (>60 ml/min/1.73 sqM) 01/19/21 11:16 Est GFR (CKD-EPI)NonAf 86 (>60 ml/min/1.73 sqM) 01/19/21 11:16 Glucose 316 mg/dL (74-99) H 01/19/21 11:16 POC Glucose (mg/dL) 248 mg/dL (75-99) H 01/20/21 06:02 POC Glu Elevating Grader Operator [place] Guerita Cruz 01/20/21 06:02 Plasma Lactic Acid Sathish 1.5 mmol/L (0.7-2.0) 01/19/21 11:16 Calcium 9.3 mg/dL (8.4-10.2) 01/19/21 11:16 Magnesium 2.0 mg/dL (1.6-2.3) 01/19/21 11:16 Ferritin 1759.8 ng/mL (10.0-291.0) H 01/19/21 11:16 Total Bilirubin 1.0 mg/dL (0.2-1.3) 01/19/21 11:16 AST 92 U/L (14-36) H 01/19/21 11:16 ALT 140 U/L (4-34) H 01/19/21 11:16 Alkaline Phosphatase 103 U/L (38-126) 01/19/21 11:16 Lactate Dehydrogenase 1897 U/L (313-618) H 01/19/21 11:16 C-Reactive Protein 0.7 mg/dL (<1.0) 01/19/21 11:16 Total Protein 6.2 g/dL (6.3-8.2) L 01/19/21 11:16 Albumin 3.6 g/dL (3.5-5.0) 01/19/21 11:16 Procalcitonin 0.12 ng/mL (0.02-0.09) H 01/19/21 11:16 PT/INR, D-dimer PT 11.0 sec (9.0-12.0) 01/19/21 11:16 INR 1.0 (<1.2) 01/19/21 11:16 Abnormal lab findings: Abnormal Labs 01/19/21 01/19/21 01/19/21 11:16 11:16 11:16 Hgb 16.6 H Hct 48.9 H Lymphocytes # 0.9 L APTT 19.6 L BUN 33 H Glucose 316 H POC Glucose (mg/dL) Ferritin 1759.8 H AST 92 H ALT 140 H Lactate Dehydrogenase 1897 H Total Protein 6.2 L Procalcitonin 01/19/21 01/19/21 01/19/21 11:16 17:48 20:17 Hgb Hct Lymphocytes # APTT BUN Glucose POC Glucose (mg/dL) 356 H 355 H Ferritin AST ALT Lactate Dehydrogenase Total Protein Procalcitonin 0.12 H 01/20/21 01/20/21 00:03 06:02 Hgb Hct Lymphocytes # APTT BUN Glucose POC Glucose (mg/dL) 311 H 248 H Ferritin AST ALT Lactate Dehydrogenase Total Protein Procalcitonin - Diagnostic Findings Chest x-ray: image reviewed Assessment and Plan Plan: 1 acute COVID-19 related pneumonia with secondary hypoxic respiratory failure. The patient currently is on a BiPAP. She is completely unresponsive. She is not communicating. She came in profoundly hypoxic to the emergency room and she was placed on a BiPAP. Initial diagnosis was established on 01/10/2021 and the patient was treated with monoclonal antibodies and the patient progressed. The patient lost her to complications of COVID-19 approximately a week ago 2 acute hypoxic respiratory failure secondary to above 3 elevated inflammatory markers secondary to COVID-19 4 diabetes mellitus 5 hyperlipidemia 6 hypertension 7 hypothyroidism 8 impaired hearing and the patient is deaf 9 sciatica Plan Agree on the current treatment which includes a combination of Crestor support with a BiPAP and steroids. The patient is not a candidate for any other further treatment. Upon inquiring her CODE STATUS, the patient was made DO NOT RESUSCITATE DO NOT INTUBATE her son's wishes and the patient's 100 hours of care measures. Family is interested in proceeding with end-of-life care. I think this reasonable. We'll sign off I will leave this to the management to hilario Metzger, continue BiPAP for now and continue supportive care. End-of-life care measures are being introduced.
[2021-01-20] MEDS: MORPHINE SULFATE 4 MG/ML SYRINGE IV PRN ×2 (10:57→13:58)
[2021-01-20] MEDS ORDERED: SCOPOLAMINE 1.5MG/72HR PATCH TRANSDERM SCH (11:00)
[2021-01-20] MEDS: DEXAMETHASONE SOD PHOSPHATE 10 MG/ML 1 ML VIAL IV SCH (11:32)
[2021-01-20] MEDS: ENOXAPARIN 40 MG/0.4 ML SYRINGE SQ SCH (11:33)
[2021-01-20] MEDS ORDERED: ENOXAPARIN 40 MG/0.4 ML SYRINGE SQ SCH (12:00)
[2021-01-20] MEDS ORDERED: ASCORBIC ACID 500 MG TAB PO SCH (12:00)
[2021-01-20] MEDS ORDERED: DEXAMETHASONE SOD PHOSPHATE 10 MG/ML 1 ML VIAL IV SCH (12:00)
[2021-01-20] MEDS ORDERED: ZINC SULFATE 220 MG CAP PO SCH (12:00)
[2021-01-20 12:35] VITALS: BMI 25.3
[2021-01-20] MEDS: MORPHINE SULFATE (100 MG/2 ML) 100 MG in SODIUM CHLORIDE 0.9% 100 ML IV SCH (16:32)
--- NOTE | 2021-01-20 21:09 | P.HPIM ---
History of Present Illness H&P Date: 01/20/21 Chief Complaint: Altered sensorium History of presenting complaint: This is a 80-year-old patient of Dr. Frederick. Chronic stable medical conditions included diabetes, GERD, hard of hearing, hypertension, hyperlipidemia, [place] arthritis, hypothyroid. Peripheral neuropathy left-sided sciatica is still bowel syndrome. Patient tested positive for COVID on January 10 at [facility]. Patient's of COVID about a week ago. At the baseline patient normally ambulating gets about. Patient did receive monoclonal antibody 2 days ago. Patient became increasingly confused at home. Since the diagnosis of COVID she was pitting 4 L of oxygen at home. Patient's pulse ox ox on room air was 80% by EMS. Patient was cyanotic. They changed to 50 L. Patient brought into the hospital. Nurse informed me that family at called in and had visited and wanted the patient to proceed with comfort care measures. They did not want any heroic measures. Review of systems: Patient unable to provide any history as patient rather delirious Past medical history to include: Diabetes, GERD, hard of hearing, hyperlipidemia, osteoarthritis, hypothyroid, positive for COVID 19 on January 10 at [facility], peripheral neuropathy, low back pain, sciatica, irritable bowel syndrome anxiety Social history: Patient's on January 15 from COVID 19 at the baseline patient is ambulatory drives a car. Patient smoked for 40 years stopped in 2003 Physical examination: VITAL SIGNS: 98.9, 99, 24, 1 56 x 1 05, 86% on 15 L nonrebreather-on presentation GENERAL: BMI 25.4, laying in bed, somewhat restless on, on BiPAP. EYES: Pupils equal. Conjunctiva normal. HEENT: External appearance of nose and ears normal, oral cavity grossly normal. NECK: JVD unable to assess; masses not palpable. HEART: First and second heart sounds are normal; no edema. LUNGS: Respiratory rate increased, decreased breath sounds and crackles. ABDOMEN: Soft, nontender, liver spleen not palpable, no masses palpable. PSYCH: [Patient is delirious. MUSCULAR skeletal: Evidence of OA NEUROLOGICAL: [Cranial nerves grossly intact; no facial asymmetry, moving all 4 limbs LYMPHATICS: No lymph nodes palpable in the axilla and neck INVESTIGATIONS, reviewed in the clinical context: WBC 8.5 hemoglobin 16.6 platelets 229 potassium 4.2 creatinine 0.61 blood glucose 316 LDH 1897 CRP 0.7 pro-calcitonin 0.12 EKG tracing personally reviewed by me-normal sinus rhythm, poor quality Chest x-ray film personally reviewed by me-bilateral infiltrates Assessment and plan: -Bilateral COVID 19 pneumonia in a patient's was of weeks ago from the same diagnosis. Patient was diagnosed with COVID 19 on 01/10/2021. Patient's family does not want any heroic measures. -Acute severe hypoxic respiratory failure from COVID 19 pneumonia. Patient was using 4 L of nasal cannula at home. Using 15 L initially currently on BiPAP. -Diabetes mellitus type 2, uncontrolled with hyperglycemia Follow Accu-Cheks -GERD PPI -Hyperlipidemia Zetia -Essential hypertension Losartan -Primary osteoarthritis Pain medicine at needed -Diabetic peripheral neuropathy Pain medicine as needed -Primary Osteoarthritis Pain medicine as needed -Hypothyroid Synthroid -Irritable bowel syndrome -No code Patient's family left the decision including patient's daughter Nuria who is the power of district attorney with the nurse that they wanted the patient to be comfort measures. Patient's prognosis is poor. I will discontinue the home medications. We'll use morphine when necessary. Scopolamine patch as needed, and Ativan for anxiety. Depending on patient's clinical status patient will be progressed to a morphine drip if required. Oxygen for comfort measures. Prognosis poor Past Medical History Past Medical History: Diabetes Mellitus, GERD/Reflux, Hearing Disorder / Deafness, Hyperlipidemia, Hypertension, Osteoarthritis (OA), Thyroid Disorder Additional Past Medical History / Comment(s): Pt tested covid + 01/10/21 at [facility]. Other hx: NIDDM type II, neuropathy bilateral feet, low back pain and L sided sciatica/hip pain, hypothyroid, IBS, benign colon polyps, benign throat polyp, vertigo History of Any Multi-Drug Resistant Organisms: None Reported Past Surgical History: Adenoidectomy, Appendectomy, Bladder Surgery, Breast Surgery, Cholecystectomy, Hysterectomy, Orthopedic Surgery, Tonsillectomy, Tubal Ligation Additional Past Surgical History / Comment(s): EGDs/throat polypectomy, colonoscopies/benign polypectomies, ORIF L leg, bladder suspension, L breast bx x2, sinus surgery, skin lesion removals. Past Anesthesia/Blood Transfusion Reactions: No Reported Reaction Smoking Status: Former smoker - Past Family History Father Family Medical History: Cancer Mother Family Medical History: Cancer Daughter(s) Family Medical History: Cancer Medications and Allergies Home Medications Medication Instructions Recorded Confirmed Type ALPRAZolam 0.25 - 0.5 mg PO TID PRN 05/08/15 01/19/21 History Cholecalciferol [Vitamin D3] 2,000 unit PO DAILY 05/08/15 01/19/21 History Ezetimibe [Zetia] 10 mg PO DAILY 05/08/15 01/19/21 History Omeprazole 20 mg PO HS 05/08/15 01/19/21 History Ubidecarenone [Co Q-10] 100 mg PO DAILY 05/08/15 01/19/21 History Albuterol Inhaler [Ventolin Hfa 2 puff INHALATION RT-QID PRN 01/19/21 01/19/21 History Inhaler] Ascorbic Acid [Vitamin C] 1,000 mg PO DAILY 01/19/21 01/19/21 History Dexamethasone [Decadron] 4 mg PO BID 01/19/21 01/19/21 History Enoxaparin [Lovenox] 40 mg SQ DAILY 01/19/21 01/19/21 History Ibuprofen [Motrin] 600 mg PO Q12H PRN 01/19/21 01/19/21 History Losartan Potassium 50 mg PO DAILY 01/19/21 01/19/21 History Losartan Potassium 50 mg PO DAILY PRN 01/19/21 01/19/21 History Zinc Sulfate [Orazinc] 220 mg PO DAILY 01/19/21 01/19/21 History sitaGLIPtin [Januvia] 50 mg PO DAILY 01/19/21 01/19/21 History Allergies Allergy/AdvReac Type Severity Reaction Status Date / Time Macrolide Antibiotics AdvReac hair falls Verified 01/19/21 12:58 out per pt Physical Exam Vitals: Vital Signs Temp Pulse Pulse Resp BP BP Pulse Ox 01/20/21 08:00 103 H 60 H 185/92 90 L 01/20/21 04:00 98.4 F 99 30 H 167/89 94 L 01/20/21 02:00 108 H 32 H 01/20/21 00:00 97.9 F 108 H 32 H 189/93 95 01/19/21 23:21 99 01/19/21 20:00 99.0 F 98 33 H 141/96 96 01/19/21 18:15 98.5 F 112 H 32 H 184/108 93 L 01/19/21 17:23 98.7 F 115 H 34 H 199/103 96 01/19/21 16:47 120 H 40 H 216/119 96 01/19/21 15:26 98.8 F 109 H 22 174/87 95 01/19/21 14:45 107 H 26 H 160/85 93 L 01/19/21 13:19 122 H 40 H 208/115 99 01/19/21 11:35 100 38 H 194/103 96 01/19/21 11:19 102 H 29 H 182/91 94 L 01/19/21 10:45 98.9 F 99 24 156/105 86 L Intake and Output 01/19/21 01/20/21 01/20/21 22:59 06:59 14:59 Intake Total 0 675 0 Output Total 0 Balance 0 675 0 Intake: Intake, IV Titration 675 Amount Sodium Chloride 0.9% 1, 675 000 ml @ 75 mls/hr IV . [id number] [facility] Rx#:[id number] Oral 0 0 Output: Urine 0 Other: # Voids 2 # Bowel Movements 1 Weight 61.689 kg 67 kg Results CBC & Chem 7: 01/19/21 11:16 01/19/21 11:16 Labs: Abnormal Lab Results - Last 24 Hours (Table) 01/19/21 01/19/21 01/19/21 Range/Units 11:16 11:16 11:16 Hgb 16.6 H (11.4-16.0) gm/dL Hct 48.9 H (34.0-46.0) % Lymphocytes # 0.9 L (1.0-4.8) k/uL APTT 19.6 L (22.0-30.0) sec BUN 33 H (7-17) mg/dL Glucose 316 H (74-99) mg/dL POC Glucose (mg/dL) (75-99) mg/dL Ferritin 1759.8 H (10.0-291.0) ng/mL AST 92 H (14-36) U/L ALT 140 H (4-34) U/L Lactate Dehydrogenase 1897 H (313-618) U/L Total Protein 6.2 L (6.3-8.2) g/dL Procalcitonin (0.02-0.09) ng/mL 01/19/21 01/19/21 01/19/21 Range/Units 11:16 17:48 20:17 Hgb (11.4-16.0) gm/dL Hct (34.0-46.0) % Lymphocytes # (1.0-4.8) k/uL APTT (22.0-30.0) sec BUN (7-17) mg/dL Glucose (74-99) mg/dL POC Glucose (mg/dL) 356 H 355 H (75-99) mg/dL Ferritin (10.0-291.0) ng/mL AST (14-36) U/L ALT (4-34) U/L Lactate Dehydrogenase (313-618) U/L Total Protein (6.3-8.2) g/dL Procalcitonin 0.12 H (0.02-0.09) ng/mL 01/20/21 01/20/21 Range/Units 00:03 06:02 Hgb (11.4-16.0) gm/dL Hct (34.0-46.0) % Lymphocytes # (1.0-4.8) k/uL APTT (22.0-30.0) sec BUN (7-17) mg/dL Glucose (74-99) mg/dL POC Glucose (mg/dL) 311 H 248 H (75-99) mg/dL Ferritin (10.0-291.0) ng/mL AST (14-36) U/L ALT (4-34) U/L Lactate Dehydrogenase (313-618) U/L Total Protein (6.3-8.2) g/dL Procalcitonin (0.02-0.09) ng/mL Thrombosis Risk Factor Assmnt - Choose All That Apply Any of the Below Risk Factors Present?: Yes Each Factor Represents 1 point: Serious lung disease incl. pneumonia (< 1month) Other Risk Factors: Yes Each Risk Factor Represents 3 Points: Age 75 years or older Other congenital or acquired thrombophilia - If yes, enter type in comment: No Thrombosis Risk Factor Assessment Total Risk Factor Score: 4 Thrombosis Risk Factor Assessment Level: Moderate Risk
[2021-01-21 01:12] VITALS: PULSE 89; RESP 24
[2021-01-21] MEDS: MORPHINE SULFATE (100 MG/2 ML) 100 MG in SODIUM CHLORIDE 0.9% 100 ML IV SCH (06:16)
--- NOTE | 2021-01-23 17:48 | P.DS ---
Providers Date of admission: 01/19/21 12:41 Expected date of discharge: 01/21/21 Attending physician: Juan Antonio Aldrich Consults: 01/19/21 12:42 Consult Physician Urgent Consulting Provider: Leonid Solis Consult Reason/Comments: covid w resp failure Do you want consulting provider notified?: Yes Primary care physician: [facility] Course: Chief Complaint: Altered sensorium History of presenting complaint: This is a 80-year-old patient of Dr. Frederick. Chronic stable medical conditions included diabetes, GERD, hard of hearing, hypertension, hyperlipidemia, osteoarthritis, hypothyroid. Peripheral neuropathy left-sided sciatica , irritable bowel syndrome. Patient tested positive for COVID on January 10 at [facility]. Patient's of COVID about a week ago. At the baseline patient normally ambulating gets about. Patient did receive monoclonal antibody 2 days ago. Patient became increasingly confused at home. Since the diagnosis of COVID she was pitting 4 L of oxygen at home. Patient's pulse ox ox on room air was 80% by EMS. Patient was cyanotic. They changed to 50 L. Patient brought into the hospital. Nurse informed me that family at called in and had visited and wanted the patient to proceed with comfort care measures. They did not want any heroic measures. Patient is made comfortable with comfort care orders. Succumbed to the same Consultation: Dr. Solis from pulmonary Past medical history to include: Diabetes, GERD, hard of hearing, hyperlipidemia, osteoarthritis, hypothyroid, positive for COVID 19 on January 10 at [facility], peripheral neuropathy, low back pain, sciatica, irritable bowel syndrome anxiety Social history: Patient's on January 15 from COVID 19 at the baseline patient is ambulatory drives a car. Patient smoked for 40 years stopped in 2003 INVESTIGATIONS, reviewed in the clinical context: WBC 8.5 hemoglobin 16.6 platelets 229 potassium 4.2 creatinine 0.61 blood glucose 316 LDH 1897 CRP 0.7 pro-calcitonin 0.12 EKG tracing personally reviewed by me-normal sinus rhythm, poor quality Chest x-ray film personally reviewed by me-bilateral infiltrates Cause of : COVID 19 pneumonia Additional medical problems: -Bilateral COVID 19 pneumonia in a patient's was of weeks ago from the same diagnosis. Patient was diagnosed with COVID 19 on 01/10/2021. Patient's family does not want any heroic measures. -Acute severe hypoxic respiratory failure from COVID 19 pneumonia. Patient was using 4 L of nasal cannula at home. Using 15 L initially currently on BiPAP. -Diabetes mellitus type 2, uncontrolled with hyperglycemia Follow Accu-Cheks -GERD PPI -Hyperlipidemia Zetia -Essential hypertension Losartan -Primary osteoarthritis Pain medicine at needed -Diabetic peripheral neuropathy Pain medicine as needed -Primary Osteoarthritis Pain medicine as needed -Hypothyroid Synthroid -Irritable bowel syndrome -No code Disposition: Patient Plan - Discharge Summary Discharge Rx Participant: No New Discharge Prescriptions: Discontinued Cholecalciferol [Vitamin D3] 2,000 unit PO DAILY Ubidecarenone [Co Q-10] 100 mg PO DAILY Omeprazole 20 mg PO HS Ezetimibe [Zetia] 10 mg PO DAILY ALPRAZolam 0.25 - 0.5 mg PO TID PRN PRN Reason: Anxiety Zinc Sulfate [Orazinc] 220 mg PO DAILY sitaGLIPtin [Januvia] 50 mg PO DAILY Ibuprofen [Motrin] 600 mg PO Q12H PRN PRN Reason: Pain Enoxaparin [Lovenox] 40 mg SQ DAILY Ascorbic Acid [Vitamin C] 1,000 mg PO DAILY Albuterol Inhaler [Ventolin Hfa Inhaler] 2 puff INHALATION RT-QID PRN PRN Reason: Shortness Of Breath Losartan Potassium 50 mg PO DAILY PRN PRN Reason: Blood Pressure - High Losartan Potassium 50 mg PO DAILY Dexamethasone [Decadron] 4 mg PO BID Discharge Disposition: - Preliminary Cause of Preliminary Cause of : COVID 19 pneumonia
--- NOTE | 2021-02-13 18:59 | CDI ---
Documentation Clarification Form Mortality Review Date: 02/13/2021 06:42:55 PM From: Christy Mccollum RN, CCDS Admit Date: 01/19/2021 12:41:00 PM Patient Name: La Nena Syed Visit Number: [id number] Discharge Date: 01/21/2021 09:08:00 AM ATTENTION: The Clinical Documentation Specialists (CDI) and [facility] Coding Staff appreciate your assistance in clarifying documentation. Please respond to the clarification below the line at the bottom and electronically sign. The CDI & [facility] Coding staff will review the response and follow-up if needed. Please note: Queries are made part of the Legal Health Record. If you have any questions, please contact the author of this message via ITS. Dr. Juan Antonio Aldrich Your patient has the documented symptom of Altered Mental Status 01/19 as chief complaint. Additional clarification regarding the etiology/cause of this symptom is requested. History/Risk Factors: DM, GERD, [place], OA, Hypothyroid, Deafness, Covid 19 positive 01/20 Clinical Indicators: 01/19 ED note: "Stated complaint: Altered Mental Status.Patient has been using oxygen as coronavirus infection recently.Patient was confused and cyanotic per EMS.Sat was in the 70s or 80s.Patient dramatically improved with 100% oxygen. General Exam: Limitations: altered mental status." 01/20 H&P and 01/23 D/C Summary: "Altered sensorium." 01/20 Pulmonary Consult: "The patient's condition gradually got worse and she came into the emergency department with altered mentation diminished level of consciousness. Unresponsive, lethargic, labored breathing, currently on a BiPAP with a full facemask, does not communicate, does not follow any commands, Head exam was generally normal. Plan: She is completely unresponsive." Documented infection: Covid 19 Pneumonia End organ dysfunction: Acute hypoxic respiratory failure 01/19 Labs: BUN 33, Ferritin 1759.8, AST 90, ALT 140, LDH 1897/2044 01/19 Chest X Ray: Interstitial COVID infiltrates in the mid and lower lungs." 01/19 1045 Admission V/S: Temp 98.9, HR 99, RR 24, B/P 156/105, Spo2 86% on 100% NRB Treatment: 01/19 0.9% NS @ 75 cc/hr. Bipap Comfort measures with Morphine Gtt titrate for comfort Please clarify the etiology of the symptom of Altered Mental Status: [ ] Anoxic Encephalopathy due to (please specify cause) [ ] Metabolic Encephalopathy (please specify cause) [ ] Other condition (please specify) [ ] Unable to determine (Template Last Revised: November 2020) Acute delirium and metabolic encephalopathy from hypoxia MTDD
== END 2021-01-21 09:08 | disposition expired | DRG 177 ==
LOC: EC 10:42 → 3SCARD 12:41
PROVIDERS: ADMIT Hospitalist; ATTEND Hospitalist
PROC: 5A0935A Assistance with Respiratory Ventilation, Less than 24 Consecutive Hours, High Flow/Velocity Cannula (ICD-10-PCS; principal; 2021-01-19)
PROC: 5A09357 Assistance with Respiratory Ventilation, Less than 24 Consecutive Hours, Continuous Positive Airway Pressure (ICD-10-PCS; 2021-01-19)
DX: U07.1 COVID-19 (principal); J12.82 Pneumonia due to coronavirus disease 2019; J96.01 Acute respiratory failure with hypoxia; G93.41 Metabolic encephalopathy; E11.42 Type 2 diabetes mellitus with diabetic polyneuropathy; Z51.5 Encounter for palliative care; Z66 Do not resuscitate; K58.9 Irritable bowel syndrome, unspecified; M19.91 Primary osteoarthritis, unspecified site; M54.32 Sciatica, left side; D72.810 Lymphocytopenia; E03.9 Hypothyroidism, unspecified; E11.65 Type 2 diabetes mellitus with hyperglycemia; E78.5 Hyperlipidemia, unspecified; F41.9 Anxiety disorder, unspecified; H91.92 Unspecified hearing loss, left ear; I10 Essential (primary) hypertension; R41.0 Disorientation, unspecified; K21.9 Gastro-esophageal reflux disease without esophagitis; R42 Dizziness and giddiness; Z79.84 Long term (current) use of oral hypoglycemic drugs; Z79.899 Other long term (current) drug therapy; Z86.010 Personal history of colon polyps; Z87.891 Personal history of nicotine dependence; Z90.710 Acquired absence of both cervix and uterus; Z90.89 Acquired absence of other organs; Z98.51 Tubal ligation status; Z98.890 Other specified postprocedural states; Z63.4 Disappearance and death of family member; Z90.49 Acquired absence of other specified parts of digestive tract; Z79.890 Hormone replacement therapy; Z88.1 Allergy status to other antibiotic agents
CPT/HCPCS: 36415; 71045; 80053; 82728; 83605; 83615; 83735; 84145; 85025; 85610; 85730; 86140; 87040; 94640; 94660; 94760; 96374; 99291